=== PATIENT | female | born 1965 | race African-American/Black ===

== ENCOUNTER 2016-10-14 17:50 | Emergency (ER) | payer SELFPAY ==
--- NOTE | 2016-10-14 18:01 | ER Document Report ---
ED Medical Screen (RME) - General Stated Complaint: EAR PAIN Mode of Arrival: Ambulatory Information source: Patient Notes: Patient since emergency department with complaints of right ear pain for the past couple days. also c/o sore throat since yesterday. She reports her ear hurts when she swallows. Denies fever vomiting diarrhea. declines pain medication I have greeted and performed a rapid initial assessment of this patient. A comprehensive ED assessment and evaluation of the patient, analysis of test results and completion of the medical decision making process will be conducted by additional ED providers. TRAVEL OUTSIDE OF THE [place] IN LAST 30 DAYS: No - Related Data Allergies/Adverse Reactions: No Known Allergies Allergy (Verified 10/14/16 18:00) Past Medical History Pulmonary Medical History: Reports: Hx Pneumonia Renal/ Medical History: Reports: Hx Ectopic , Hx Ovarian Cysts GI Medical History: Reports: Hx Diverticulitis, Hx Gastritis Past Surgical History: Reports: Hx Appendectomy, Hx Gynecologic Surgery - both tubes and one ovary removed, Hx Tonsillectomy, Hx Tubal Ligation - Immunizations Immunizations up to date: Yes Hx Diphtheria, Pertussis, Tetanus Vaccination: Yes Physical Exam - Vital signs Vitals: Temp Pulse Resp BP Pulse Ox 97.5 F 72 16 137/82 H 99 10/14/16 17:57 10/14/16 17:57 10/14/16 17:57 10/14/16 17:57 10/14/16 17:57 Course - Vital Signs Vital signs: Temp Pulse Resp BP Pulse Ox 97.5 F 72 16 137/82 H 99 10/14/16 17:57 10/14/16 17:57 10/14/16 17:57 10/14/16 17:57 10/14/16 17:57
[2016-10-14] MEDS ORDERED: HYDROCODONE/ACETAMINOPHEN 5-325 MG 6 TAB/DSPK PO PRN (20:04)
[2016-10-14] MEDS ORDERED: AMOXICILLIN TRIHYDRATE 500 MG CAPSULE PO ONE (20:04)
[2016-10-14] MEDS ORDERED: CIPROFLOXACIN HCL/DEXAMETH OTIC DROP 7.5 ML AD ONE (20:04)
--- NOTE | 2016-10-14 20:08 | ER Document Report ---
HPI - HPI Patient complains to provider of: right ear pain Pain Level: 4 Context: Patient is a 51-year-old female that comes emergency department for chief complaint of worsening pain in her right ear, she states the pain in her ear seems to radiate down the area in her neck just below her ear. He denies any swelling to the area, fever, dizziness, nausea or vomiting. She denies sore throat. Patient states she has been mildly congested with past several days. She denies any cough. - REPRODUCTIVE Reproductive: DENIES: : - DERM Skin Color: Normal Past Medical History - General Information source: Patient - Social History Smoking Status: Current Some Day Smoker Chew tobacco use (# tins/day): No Frequency of alcohol use: None Drug Abuse: None Lives with: Family Family History: CAD, Hyperlipidemia, Hypertension, Malignancy Patient has suicidal ideation: No Patient has homicidal ideation: No Pulmonary Medical History: Reports: Hx Pneumonia Renal/ Medical History: Reports: Hx Ectopic , Hx Ovarian Cysts. Denies: Hx Peritoneal Dialysis GI Medical History: Reports: Hx Diverticulitis, Hx Gastritis Past Surgical History: Reports: Hx Appendectomy, Hx Gynecologic Surgery - both tubes and one ovary removed, Hx Tonsillectomy, Hx Tubal Ligation - Immunizations Immunizations up to date: Yes Hx Diphtheria, Pertussis, Tetanus Vaccination: Yes Vertical Provider Document - CONSTITUTIONAL General Appearance: WD/WN, No Apparent Distress - Patient appears to be only mildly uncomfortable, no distress - INFECTION CONTROL TRAVEL OUTSIDE OF THE [place] IN LAST 30 DAYS: No - HEENT HEENT: negative: Normal ENT Exam - Right ear canal with some inflammation but no noted swelling, right tragus is tender, right eardrum with loss of landmarks and erythema but no noted overt effusion - NECK Neck: Normal Inspection - RESPIRATORY Respiratory: Breath Sounds Normal, No Respiratory Distress O2 Sat by Pulse Oximetry: 99 - CARDIOVASCULAR Cardiovascular: Regular Rate, Regular Rhythm - GI/ABDOMEN Gastrointestinal: Abdomen Soft, Abdomen Non-Tender - BACK Back: Normal Inspection - MUSCULOSKELETAL/EXTREMETIES Musculoskeletal/Extremeties: MAEW, FROM, Non-Tender - NEURO Level of Consciousness: Awake, Alert, Appropriate - DERM Integumentary: Warm, Dry, No Rash Course - Re-evaluation Re-evalutation: Examination indicates post otitis externa and otitis media. Treating for both. Discussed follow-up and return precautions. Patient states understanding and agreement. - Vital Signs Vital signs: Temp Pulse Resp BP Pulse Ox 97.5 F 72 16 137/82 H 99 10/14/16 17:57 10/14/16 17:57 10/14/16 17:57 10/14/16 17:57 10/14/16 17:57 Discharge - Discharge Clinical Impression: Otitis externa Qualifiers: Otitis externa type: unspecified type Laterality: right Chronicity: acute Qualified Code(s): H60.501 - Unspecified acute noninfective otitis externa, right ear Otitis media Qualifiers: Otitis media type: other nonsuppurative Laterality: right Chronicity: acute Recurrence: not specified as recurrent Qualified Code(s): H65.191 - Other acute nonsuppurative otitis media, right ear Condition: Good Disposition: HOME, SELF-CARE Additional Instructions: Examination is consistent with an ear canal infection and a middle ear infection. Use the given drops, take the amoxicillin antibiotic, use the Flonase nasal spray. Follow-up with primary care. Return to emergency department for any concerning or worsening symptoms. Prescriptions: Amoxicillin Trihydrate [Amoxil 500 mg Capsule] 500 mg PO TID #30 cap Fluticasone Propionate [Flonase Nasal [place] 50 Mcg/[place] 16 gm] 2 sprays NASL Q12 #1 inhaler Neomy Sulf/Polymyx B Sulf/Hc [Cortisporin Otic Susp] 1 drop ASDIR #1 bottle Forms: Elevated Blood Pressure
[2016-10-14 20:38] VITALS: BP 130/72
== END 2016-10-14 20:36 | disposition home or self-care (01) ==
LOC: ER 17:50
DX: H60.501 Unspecified acute noninfective otitis externa, right ear (principal); H65.191 Other acute nonsuppurative otitis media, right ear; H92.01 Otalgia, right ear; F17.200 Nicotine dependence, unspecified, uncomplicated; Z98.51 Tubal ligation status
CPT/HCPCS: 99282; J3490

== ENCOUNTER 2017-04-01 14:43 | Emergency (ER) | payer SELFPAY ==
--- NOTE | 2017-04-01 15:16 | ER Document Report ---
ED Oral Problem - General Stated Complaint: TOOTH PAIN Time Seen by Provider: 04/01/17 14:57 Mode of Arrival: Ambulatory Information source: Patient TRAVEL OUTSIDE OF THE [place] IN LAST 30 DAYS: No - HPI Patient complains to provider of: Swelling of face, Toothache Onset: Other - 3 days Onset: Gradual Quality of pain: Achy Severity: Moderate Pain Level: 4 Swollen jaw/face: Mild Associated symptoms: Dental decay, Toothache Notes: Patient is a 52-year-old female presenting to the emergency room today complaining of dental pain, with poor dentition, fractured tooth and a mild facial swelling that has been worsening over the past 2-3 days, she denies any recent injury, no drainage, no fever, has not been seen by a dentist recently - Related Data Allergies/Adverse Reactions: No Known Allergies Allergy (Verified 04/01/17 15:27) Past Medical History - General Information source: Patient - Social History Smoking Status: Current Every Day Smoker Family History: CAD, Hyperlipidemia, Hypertension, Malignancy Pulmonary Medical History: Reports: Hx Pneumonia Renal/ Medical History: Reports: Hx Ectopic , Hx Ovarian Cysts. Denies: Hx Peritoneal Dialysis GI Medical History: Reports: Hx Diverticulitis, Hx Gastritis Past Surgical History: Reports: Hx Appendectomy, Hx Gynecologic Surgery - both tubes and one ovary removed, Hx Tonsillectomy, Hx Tubal Ligation - Immunizations Immunizations up to date: Yes Hx Diphtheria, Pertussis, Tetanus Vaccination: Yes Review of Systems - Review of Systems Constitutional: No symptoms reported EENT: See HPI Cardiovascular: No symptoms reported Respiratory: No symptoms reported Gastrointestinal: No symptoms reported Genitourinary: No symptoms reported Female Genitourinary: No symptoms reported Musculoskeletal: No symptoms reported Skin: No symptoms reported Hematologic/Lymphatic: No symptoms reported Neurological/Psychological: No symptoms reported -: Yes All other systems reviewed and negative Physical Exam - Vital signs Vitals: Temp Pulse Resp BP Pulse Ox 99.1 F 85 16 129/103 H 100 04/01/17 14:52 04/01/17 14:52 04/01/17 14:52 04/01/17 14:52 04/01/17 14:52 Interpretation: Normal - General General appearance: Appears well, Alert In distress: None - HEENT Head: Normocephalic, Atraumatic Eyes: Normal Conjunctiva: Normal Extraocular movements intact: Yes Eyelashes: Normal Pupils: PERRL Mouth/Lips: Caries - Diffusely poor dentition, in the right mandibular region near where tooth 20 should be, there is erythema and swelling, dental caries, with a fractured tooth, with a small portion of a brownish colored tooth remaining no abscess present, no area of fluctuance, no drainage - Respiratory Respiratory status: No respiratory distress Chest status: Nontender Breath sounds: Normal Chest palpation: Normal - Cardiovascular Rhythm: Regular Heart sounds: Normal auscultation Murmur: No - Abdominal Inspection: Normal Distension: No distension Bowel sounds: Normal Tenderness: Nontender Organomegaly: No organomegaly - Back Back: Normal, Nontender - Extremities General upper extremity: Normal inspection, Nontender, Normal color, Normal ROM , Normal temperature General lower extremity: Normal inspection, Nontender, Normal color, Normal ROM , Normal temperature, Normal weight bearing. No: Lupe's sign - Neurological Neuro grossly intact: Yes Cognition: Normal Orientation: AAOx4 [place] Coma Scale Eye Opening: Spontaneous [place] Coma Scale Verbal: Oriented [place]issa Coma Scale Motor: Obeys Commands Elissa Coma Scale Total: 15 Speech: Normal Motor strength normal: LUE, RUE, LLE, RLE Sensory: Normal - Psychological Associated symptoms: Normal affect, Normal mood - Skin Skin Temperature: Warm Skin Moisture: Dry Skin Color: Normal Course - Re-evaluation Re-evalutation: 04/01/17 16:08 Patient with poor dentition, dental caries with dental infection, started on antibiotics and provided with a small amount of pain medication as well as information for follow-up, advised to return if symptoms worsen, patient acknowledges understanding and agreement with this plan - Vital Signs Vital signs: Temp Pulse Resp BP Pulse Ox 99.1 F 74 18 102/84 100 04/01/17 14:52 04/01/17 15:29 04/01/17 15:29 04/01/17 15:29 04/01/17 15:29 Discharge - Discharge Clinical Impression: Dental infection Condition: Stable Disposition: HOME, SELF-CARE Instructions: [facility], Dentist, Dental Infection or Abscess ( [facility]) Additional Instructions: Follow up with your primary care provider and dentist in one to 2 days. Return to the emergency room immediately if symptoms worsen or any additional concerns. Prescriptions: Hydrocodone/Acetaminophen [Hydrocodon-Acetaminophen 5-325] 1 each PO Q6 #14 tablet Penicillin V Potassium [Penicillin Vk 500 mg Tablet] 500 mg PO TID #30 tablet
[2017-04-01 15:30] VITALS: BP 102/84
== END 2017-04-01 15:29 | disposition home or self-care (01) ==
LOC: ER 14:43
DX: K04.7 Periapical abscess without sinus (principal); K08.89 Other specified disorders of teeth and supporting structures; R22.0 Localized swelling, mass and lump, head; F17.200 Nicotine dependence, unspecified, uncomplicated
CPT/HCPCS: 99282

== ENCOUNTER 2017-10-11 13:59 | Emergency (ER) | payer SELFPAY ==
[2017-10-11] MEDS ORDERED: FENTANYL CITRATE INJ/PF 100 MCG/2 ML AMPUL IV ONE (14:15)
[2017-10-11] MEDS ORDERED: ONDANSETRON HCL INJ/PF 4 MG/2 ML SDV IV ONE (14:15)
--- NOTE | 2017-10-11 14:16 | ER Document Report ---
ED Medical Screen (RME) - General Chief Complaint: Abdominal Pain Stated Complaint: ABDOMINAL PAIN Time Seen by Provider: 10/11/17 14:11 Notes: RME DISCLOSURE I have seen this patient as part of a Rapid Medical Evaluation and, if applicable, placed any initially appropriate orders. The patient will be seen and fully evaluated, including a full history and physical exam, by a provider ( in Main ED or Fast Track) when a room becomes available. 52-year-old female here with complaints of abdominal pain nausea and vomiting that started early this morning. She states it feels the same way as when she had diverticulitis years ago. She has tried taking Tylenol for the pain with minimal relief. No fevers or chills. TRAVEL OUTSIDE OF THE [place] IN LAST 30 DAYS: No - Related Data Allergies/Adverse Reactions: No Known Allergies Allergy (Verified 10/11/17 14:02) Past Medical History - Social History Chew tobacco use (# tins/day): No Frequency of alcohol use: None Drug Abuse: None Pulmonary Medical History: Reports: Hx Pneumonia Renal/ Medical History: Reports: Hx Ectopic , Hx Ovarian Cysts. Denies: Hx Peritoneal Dialysis GI Medical History: Reports: Hx Diverticulitis, Hx Gastritis Past Surgical History: Reports: Hx Appendectomy, Hx Gynecologic Surgery - both tubes and one ovary removed, Hx Tonsillectomy, Hx Tubal Ligation - Immunizations Immunizations up to date: Yes Hx Diphtheria, Pertussis, Tetanus Vaccination: Yes Physical Exam - Vital signs Vitals: Temp Pulse Resp BP Pulse Ox 97.8 F 76 20 128/109 H 100 10/11/17 14:08 10/11/17 14:10/11/17 14:10/11/17 14:10/11/17 14:08 Course - Vital Signs Vital signs: Temp Pulse Resp BP Pulse Ox 97.8 F 76 20 128/109 H 100 10/11/17 14:08 10/11/17 14:08 10/11/17 14:08 10/11/17 14:08 10/11/17 14:08
--- NOTE | 2017-10-11 14:46 | ER Document Report ---
ED General - General Chief Complaint: Abdominal Pain Stated Complaint: ABDOMINAL PAIN Time Seen by Provider: 10/11/17 14:11 TRAVEL OUTSIDE OF THE [place] IN LAST 30 DAYS: No - HPI Patient complains to provider of: Abdominal pain Notes: Left lower quadrant abdominal pain 8/10 sharp in nature. Patient has history of diverticular disease states this feels like a diverticulitis flare. Denies fever chills. Pain does not radiate anywhere nothing made it better or worse. Patient has no history of surgical intervention secondary diverticular disease, Hemoccult negative - Related Data Allergies/Adverse Reactions: No Known Allergies Allergy (Verified 10/11/17 14:02) Past Medical History - Social History Smoking Status: Current Every Day Smoker Chew tobacco use (# tins/day): No Frequency of alcohol use: None Drug Abuse: None Family History: CAD, Hyperlipidemia, Hypertension, Malignancy Patient has suicidal ideation: No Patient has homicidal ideation: No Pulmonary Medical History: Reports: Hx Pneumonia Renal/ Medical History: Reports: Hx Ectopic , Hx Ovarian Cysts. Denies: Hx Peritoneal Dialysis GI Medical History: Reports: Hx Diverticulitis, Hx Gastritis Past Surgical History: Reports: Hx Appendectomy, Hx Gynecologic Surgery - both tubes and one ovary removed, Hx Tonsillectomy, Hx Tubal Ligation - Immunizations Immunizations up to date: Yes Hx Diphtheria, Pertussis, Tetanus Vaccination: Yes Review of Systems - Review of Systems Notes: REVIEW OF SYSTEMS: CONSTITUTIONAL: -fevers, -chills EENT: -eye pain, -difficulty swallowing, -nasal congestion CARDIOVASCULAR: -chest pain, -syncope. RESPIRATORY: -cough, -SOB GASTROINTESTINAL: Positive abdominal pain GENITOURINARY: -dysuria, -hematuria MUSCULOSKELETAL: -back pain, -neck pain SKIN: -rash or skin lesions. HEMATOLOGIC: -easy bruising or bleeding. LYMPHATIC: -swollen, enlarged glands. NEUROLOGICAL: -altered mental status or loss of consciousness, -headache, - neurologic symptoms PSYCHIATRIC: -anxiety, -depression. ALL OTHER SYSTEMS REVIEWED AND NEGATIVE. Physical Exam - Vital signs Vitals: Temp Pulse Resp BP Pulse Ox 97.8 F 76 20 128/109 H 100 10/11/17 14:08 10/11/17 14:08 10/11/17 14:08 10/11/17 14:08 10/11/17 14:08 - Notes Notes: PHYSICAL EXAMINATION: GENERAL: Well-appearing, well-nourished and in no acute distress. HEAD: Atraumatic, normocephalic. EYES: Pupils equal round and reactive to light, extraocular movements intact, sclera anicteric, conjunctiva are normal. ENT: nares patent, oropharynx clear without exudates. Moist mucous membranes. NECK: Normal range of motion, supple without lymphadenopathy LUNGS: Breath sounds clear to auscultation bilaterally and equal. No wheezes rales or rhonchi. HEART: Regular rate and rhythm without murmurs ABDOMEN: No rebound, negative guarding EXTREMITIES: Normal range of motion, no pitting or edema. No cyanosis. NEUROLOGICAL: Cranial nerves grossly intact. Normal speech, normal gait. Normal sensory and motor exams. PSYCH: Normal mood, normal affect. SKIN: Warm, Dry, normal turgor, no rashes or lesions noted. Course - Re-evaluation Re-evalutation: 10/11/17 16:14 Pleasant female presents with mild left lower quadrant pain. She states his diverticulitis. 2 attempts at obtaining blood draw in the department along with IV axis. Patient states it hurts too much she does not want an IV. Patient would like to try outpatient diverticulitis therapy. Had lengthy conversation with patient that I could put a central line in her or an ultrasound-guided line. She states she has been here long enough she would like to go home. Patient given pain medicine and antinausea medicine is tolerating oral intake. Had lengthy conversation with patient about need for follow-up. Patient given initial dose Augmentin in the emergency department pain medication. Will be discharged home with more Augmentin, pain medicine, antiemetics. Patient instructed to eat a bland diet clear liquids or no food at all give herself bowel rest outside of medications. Patient does decide she wants to return to the hospital please due for admission. - Vital Signs Vital signs: Temp Pulse Resp BP Pulse Ox 97.8 F 76 20 128/109 H 100 10/11/17 14:08 10/11/17 14:08 10/11/17 14:08 10/11/17 14:08 10/11/17 14:08 Discharge - Discharge Clinical Impression: Diverticulitis Condition: Good Disposition: HOME, SELF-CARE Instructions: [facility]iculitis ([facility]) Additional Instructions: sEE YOUR pcp Prescriptions: Amox Tr/Potassium Clavulanate [Augmentin 875-125 Tablet] 1 tab PO BID 10 Days tablet Oxycodone HCl [Oxycodone HCl 10 MG Tablet] 1 - 2 tab PO Q6H PRN #15 tablet PRN Reason: PAIN Promethazine HCl [Phenergan 25 mg Tablet] 1 - 2 tab PO Q6H PRN #15 tablet PRN Reason: Referrals: [facility],NO [Primary Care Provider] - Follow up as needed
[2017-10-11] MEDS ORDERED: HYDROMORPHONE HCL INJ/PF 2 MG/ML AMPULE IM ONE (15:59)
[2017-10-11] MEDS ORDERED: AMOXICILLIN TR/POT CLAVULANATE 250-125 MG TAB PO ONE (16:01)
[2017-10-11] MEDS ORDERED: PROMETHAZINE HCL INJ 25 MG/1 ML VIAL IM ONE (16:01)
[2017-10-11 16:48] VITALS: BP 130/88
== END 2017-10-11 16:46 | disposition home or self-care (01) ==
LOC: ER 13:59
DX: K57.92 Diverticulitis of intestine, part unspecified, without perforation or abscess without bleeding (principal); R10.32 Left lower quadrant pain; F17.200 Nicotine dependence, unspecified, uncomplicated; Z87.19 Personal history of other diseases of the digestive system; Z90.49 Acquired absence of other specified parts of digestive tract
CPT/HCPCS: 99283; 96372; 96374; 96375; J3490; J3010; J1170; J2550; J2405

== ENCOUNTER 2017-10-15 13:25 | Emergency (ER) | payer SELFPAY ==
[2017-10-15 13:46] VITALS: BP 138/67
[2017-10-15] MEDS ORDERED: TRAMADOL HCL 50 MG TABLET PO ONE ×2 (15:41→16:24)
--- NOTE | 2017-10-15 15:47 | ER Document Report ---
ED Oral Problem - General Chief Complaint: Toothache Stated Complaint: TOOTH PAIN Time Seen by Provider: 10/15/17 15:34 Mode of Arrival: Ambulatory Information source: Patient TRAVEL OUTSIDE OF THE [place] IN LAST 30 DAYS: No - HPI Patient complains to provider of: Toothache Notes: Patient is here with complaints of left lower dental pain. She states that she has had this pain since yesterday. No fevers. No difficulty breathing or swallowing. No nausea, vomiting, diarrhea. No chest pain or shortness of breath. No rash. She denies any facial swelling or jaw swelling. She states that she went to a dentist earlier today, they wanted $100 in order to see her and she states that she cannot afford that until Sunday. So she came emergency department hoping to get relief of her pain. She has no other complaints at this time. The pain is worse with trying to eat. Nothing makes it better. - Related Data Allergies/Adverse Reactions: No Known Allergies Allergy (Verified 10/15/17 13:27) Past Medical History - Social History Smoking Status: Unknown if Ever Smoked Family History: CAD, Hyperlipidemia, Hypertension, Malignancy Pulmonary Medical History: Reports: Hx Pneumonia Renal/ Medical History: Reports: Hx Ectopic , Hx Ovarian Cysts. Denies: Hx Peritoneal Dialysis GI Medical History: Reports: Hx Diverticulitis, Hx Gastritis Past Surgical History: Reports: Hx Appendectomy, Hx Gynecologic Surgery - both tubes and one ovary removed, Hx Tonsillectomy, Hx Tubal Ligation - Immunizations Immunizations up to date: Yes Hx Diphtheria, Pertussis, Tetanus Vaccination: Yes Review of Systems - Review of Systems -: Yes All other systems reviewed and negative Physical Exam - Vital signs Vitals: Temp Pulse Resp BP Pulse Ox 97.9 F 67 16 138/67 H 100 10/15/17 13:44 10/15/17 13:44 10/15/17 13:44 10/15/17 13:44 10/15/17 13:44 - Notes Notes: GENERAL: alert, cooperative, nontoxic, no distress. HEAD: normocephalic, atraumatic EYES: conjunctiva pink without discharge, no external redness or swelling. EARS: no external swelling, no external redness NOSE: atraumatic, no external swelling MOUTH/THROAT: mucous membranes moist and pink. Widespread dental decay. Significantly decayed tooth noted to the left lower jaw at approximately TOOTH 22. No sizable, drainable abscess identified. No facial swelling. No sublingual swelling or induration. No sign of Giuseppe's angina. NECK: soft, supple, full range of motion, no meningismus. CHEST: no distress, lungs clear and equal throughout. No wheezing, rales, rhonchi. CARDIAC: regular rate and rhythm, no murmur, normal capillary refill, normal pulses. BACK: full range of motion, no CVA tenderness. EXTREMITIES: full range of motion of all extremities. No redness, no swelling. NEURO: alert and oriented 3, no focal deficits, full range of motion of all extremities. PYSCH: appropriate mood, affect. Patient is cooperative. SKIN: pink, warm, dry, no rash. Course - Re-evaluation Re-evalutation: 10/15/17 15:43 The patient is nontoxic appearing with stable vitals. The patient arrives with left lower dental pain. States this started yesterday. She is a nontoxic exam with no sign of Giuseppe's angina or distress. She is noted to have some widespread dental decay and tooth #22 appears to have a significant cavity. This point the patient can be discharged home with prescription for some pain medication as well as antibiotics. She is instructed to follow-up with a dentist at the next available appointment for reevaluation. Follow-up sooner for increasing pain, high fever, swelling, difficulty breathing or swallowing, or for any further concerns. The patient's emergency department workup and current diagnosis were explained to the patient and or family. Follow-up instructions were provided. Medications if prescribed were discussed. Instructions for when to return to the emergency department including specific worrisome symptoms were discussed with the patient and/or family. The patient is noted to have elevated blood pressure during today's emergency department visit. The patient was informed of this finding. The patient was instructed that this may be related to pre-hypertension and requires further evaluation with a primary care provider. The patient has no hypertensive symptoms at this time. - Vital Signs Vital signs: Temp Pulse Resp BP Pulse Ox 97.9 F 67 16 138/67 H 100 10/15/17 13:44 10/15/17 13:44 10/15/17 13:44 10/15/17 13:44 10/15/17 13:44 Discharge - Discharge Clinical Impression: Dental caries, Pain, dental Condition: Stable Disposition: HOME, SELF-CARE Instructions: [facility], Toothache ([facility]), Dentist Additional Instructions: Take medications as prescribed. Follow-up with a dentist at the next available appointment. Follow-up sooner for increasing pain, high fever, difficulty breathing or swallowing, significant swelling, or for any further concerns. Your blood pressure was elevated during today's visit. Have this rechecked with your doctor. The medication you were prescribed today may cause drowsiness. Do not drive or operate heavy machinery while taking this medication. Prescriptions: Tramadol HCl [Ultram 50 mg Tablet] 50 mg PO Q6HP PRN #6 tablet PRN Reason: Penicillin V Potassium [Penicillin Vk 500 mg Tablet] 500 mg PO BID #20 tablet Forms: Elevated Blood Pressure, Smoking Cessation Education Referrals: [facility] [Provider Group] - Follow up as needed [facility] [Provider Group] - Follow up as needed
[2017-10-15] MEDS ORDERED: KETOROLAC TROMETHAMINE INJ/PF 30 MG/1 ML SDV IM ONE (16:21)
== END 2017-10-15 16:35 | disposition home or self-care (01) ==
LOC: ER 13:25
DX: K02.9 Dental caries, unspecified (principal); K08.89 Other specified disorders of teeth and supporting structures; R03.0 Elevated blood-pressure reading, without diagnosis of hypertension
CPT/HCPCS: 99282

== ENCOUNTER 2018-07-28 11:20 | Emergency (ER) | payer SELFPAY ==
[2018-07-28] MEDS ORDERED: KETOROLAC TROMETHAMINE INJ/PF 30 MG/1 ML SDV IV ONE (11:47)
--- NOTE | 2018-07-28 11:49 | ER Document Report ---
ED Medical Screen (RME) - General Chief Complaint: Abdominal Pain Stated Complaint: ABDOMINAL PAIN Time Seen by Provider: 07/28/18 11:47 Mode of Arrival: Ambulatory Information source: Patient TRAVEL OUTSIDE OF THE [place] IN LAST 30 DAYS: No - HPI Patient complains to provider of: abd pain Onset: This morning - pt. with h/o diverticulitis with c/o severe abd pain and nausea earlier this am. Had vomiting and diarrhea times 1 - Related Data Allergies/Adverse Reactions: No Known Allergies Allergy (Verified 07/28/18 11:21) Past Medical History Pulmonary Medical History: Reports: Hx Pneumonia Renal/ Medical History: Reports: Hx Ectopic , Hx Ovarian Cysts. Denies: Hx Peritoneal Dialysis GI Medical History: Reports: Hx Diverticulitis, Hx Gastritis Past Surgical History: Reports: Hx Appendectomy, Hx Gynecologic Surgery - both tubes and one ovary removed, Hx Tonsillectomy, Hx Tubal Ligation - Immunizations Immunizations up to date: Yes Hx Diphtheria, Pertussis, Tetanus Vaccination: Yes Physical Exam - Vital signs Vitals: Temp Pulse Resp BP Pulse Ox 97.8 F 99 18 130/97 H 99 07/28/18 11:27 07/28/18 11:27 07/28/18 11:27 07/28/18 11:27 07/28/18 11:27 Course - Vital Signs Vital signs: Temp Pulse Resp BP Pulse Ox 97.8 F 99 18 130/97 H 99 07/28/18 11:27 07/28/18 11:27 07/28/18 11:27 07/28/18 11:27 07/28/18 11:27
[2018-07-28] MEDS ORDERED: MAG HYDROX/AL HYDROX/SIMETH SUSP 30 ML UDCUP PO ONE (13:01)
[2018-07-28] MEDS ORDERED: ONDANSETRON HCL INJ/PF 4 MG/2 ML SDV IV ONE (13:01)
[2018-07-28] MEDS ORDERED: LIDOCAINE 2% VISCOUS SOLN 20 ML UDCUP PO ONE (13:01)
[2018-07-28] MEDS ORDERED: NORMAL SALINE 1000 ML 1,000 ML IV ONE (13:01)
[2018-07-28] MEDS ORDERED: METOCLOPRAMIDE HCL ORAL SOLN 10 MG/10 ML UDCUP PO ONE (13:01)
--- NOTE | 2018-07-28 13:04 | ER Document Report ---
Addendum entered and electronically signed by FRANSISCA LOWERY PA-C 07/28/18 17:24: Course - Re-evaluation Re-evalutation: 07/28/18 17:21 Patient is an afebrile, well-hydrated, 53-year-old female who presents to the ED with epigastric pain unspecified. Vitals are acceptable without any significant tachycardia, tachypnea, or hypoxia. PE is otherwise unremarkable. CBC, CMP, lipase, CT of the abdomen/pelvis was unremarkable for acute pathology. Patient is nontoxic-appearing is tolerating p.o. without any difficulties. No other labs or imaging warranted at this time based on H&P. Pt has not had any episodes of emesis or diarrhea throughout her stay. Low suspicion/risk for acute appendicitis, bowel obstruction, acute cholecystitis, acute cholangitis, perforated diverticulitis, incarcerated hernia, pancreatitis, perforated ulcer, peritonitis, sepsis, pelvic inflammatory disease, ectopic , tubo- ovarian abscess, ovarian torsion, or other systemic emergent condition at this time. Patient is aware that her condition can change from initial presentation and she needs to monitor symptoms closely and seek medical attention if any acute changes. I will send her home with prescription for Zofran.-year-old female presents Conservative measures otherwise for symptoms. Recheck with your PCM in 3-5 days. Return to the ED with any worsening/concerning symptoms otherwise as reviewed in discharge. Patient is in agreement. - Vital Signs Vital signs: Temp Pulse Resp BP Pulse Ox 97.8 F 99 18 130/97 H 99 07/28/18 11:27 07/28/18 11:27 07/28/18 11:27 07/28/18 11:27 07/28/18 11:27 - Laboratory Result Diagrams: 07/28/18 12:53 07/28/18 12:53 Laboratory results interpreted by me: 07/28/18 07/28/18 12:53 12:53 WBC 11.9 H MCH 26.9 L Seg Neutrophils % 80.1 H Monocytes % 2.8 L Absolute Neutrophils 9.6 H Chloride 110 H Glucose 112 H Calcium 10.5 H Discharge - Discharge Clinical Impression: Nonspecific abdominal pain Nausea and vomiting Qualifiers: Vomiting type: unspecified Vomiting Intractability: non-intractable Qualified Code(s): R11.2 - Nausea with vomiting, unspecified Condition: Stable Disposition: HOME, SELF-CARE Instructions: Abdominal Pain ([facility]), Antinausea Medication ([facility]), Vomiting ([facility]), Diarrhea, Nonspecific ([facility]) Additional Instructions: Maintain adequate fluid and food intake [place] diet ([employer] Bananas, rice, apples, toast, etc Zofran as needed tylenol if needed Monitor for any worsening symptoms Make sure you are staying hydrated enough to urinate and have normal BM's Recheck with your PCM in 3-5 days Consider consult with Gastroenterology for ongoing/worsening symptoms Return to the ED with any worsening symptoms and/or development of fever, headache, chest pain, palpitations, syncope, shortness of breath, trouble breathing, abdominal pain, n/v/d, blood in stool/urine, weakness, or other worsening symptoms that are concerning to you. Prescriptions: Loperamide HCl [Imodium 2 mg Capsule] 2 mg PO PRN PRN #21 cap PRN Reason: Ondansetron [Zofran Odt 4 mg Tablet] 1 - 2 tab PO Q4H PRN #15 tab.rapdis PRN Reason: For Nausea/Vomiting Original Note: ED General - General Mode of Arrival: Ambulatory TRAVEL OUTSIDE OF THE [place] IN LAST 30 DAYS: No <FRANSISCA LOWERY - Last Filed: 07/28/18 13:01> <ANGEL ROYAL - Last Filed: 07/28/18 15:24> - General Chief Complaint: Abdominal Pain Stated Complaint: ABDOMINAL PAIN Time Seen by Provider: 07/28/18 11:47 - HPI Notes: Patient is a 53-year-old female with a history of diverticulosis who presents to the ED complaining of epigastric/mid abdominal pain that started this morning. Patient states that she did have some soreness last night, but the pain became worse after she was vomiting. Patient states that she had vomiting and diarrhea beginning yesterday, but has not vomited today. She has not noticed any melena or hematochezia. She has not had any hematemesis. Patient states that she was retching "fairly hard." Patient states that p.o. intake does increase her nausea so she has not been eating or drinking today. Denies any drug allergies. She does have a surgical history for ooverectomy and appendectomy. The pain does not radiate otherwise. Denies any headache, fever, URI, sore throat, chest pain, palpitations, syncope, cough, shortness of breath, wheeze, dyspnea, urinary retention, dysuria, hematuria, back pain, loss of control of bowel or bladder, numbness/tingling, saddle anesthesia, muscle paralysis/weakness, or rash. (FRANSISCA LOWERY) - Related Data Allergies/Adverse Reactions: No Known Allergies Allergy (Verified 07/28/18 11:21) Past Medical History - General Information source: Patient - Social History Smoking Status: Current Every Day Smoker Frequency of alcohol use: None Drug Abuse: None Family History: CAD, Hyperlipidemia, Hypertension, Malignancy Patient has suicidal ideation: No Patient has homicidal ideation: No Pulmonary Medical History: Reports: Hx Pneumonia Renal/ Medical History: Reports: Hx Ectopic , Hx Ovarian Cysts. Denies: Hx Peritoneal Dialysis GI Medical History: Reports: Hx Diverticulitis, Hx Gastritis Past Surgical History: Reports: Hx Appendectomy, Hx Gynecologic Surgery - both t ubes and one ovary removed, Hx Tonsillectomy, Hx Tubal Ligation - Immunizations Immunizations up to date: Yes Hx Diphtheria, Pertussis, Tetanus Vaccination: Yes <FRANSISCA LOWERY - Last Filed: 07/28/18 13:01> Review of Systems - Review of Systems -: Yes All other systems reviewed and negative <FRANSISCA LOWERY - Last Filed: 07/28/18 13:01> Physical Exam <FRANSISCA LOWERY - Last Filed: 07/28/18 13:01> - Vital signs Vitals: Temp Pulse Resp BP Pulse Ox 97.8 F 99 18 130/97 H 99 07/28/18 11:27 07/28/18 11:27 07/28/18 11:27 07/28/18 11:27 07/28/18 11:27 - Notes Notes: PHYSICAL EXAMINATION: GENERAL: Well-appearing, well-nourished and in no acute distress. HEAD: Atraumatic, normocephalic. EYES: Pupils equal round and reactive to light, extraocular movements intact, sclera anicteric, conjunctiva are normal. ENT: EAC clear b/l. TM's intact b/l without erythema, fluid, or perforation. Nares patent and without discharge. oropharynx clear without exudates. No tonsilar hypertrophy or erythema. Moist mucous membranes. No sinus tenderness. NECK: Normal range of motion, supple without lymphadenopathy LUNGS: Breath sounds clear to auscultation bilaterally and equal. No wheezes rales or rhonchi. HEART: Regular rate and rhythm without murmurs, rubs, gallops. ABDOMEN: Soft, nondistended abdomen. No guarding, no rebound. Normal bowel sounds present. No CVA tenderness bilaterally. + tenderness to the epigastrum and above the umbilicus at the midline. No tenderness at LLQ, RLQ, or montoya. Musculoskeletal: FROM to passive/active. Strength 5+/5. Extremities: No cyanosis, clubbing, or edema b/l. Peripheral pulses 2+. Capillary refill less than 3 seconds. NEUROLOGICAL: Normal speech, normal gait. PSYCH: Normal mood, normal affect. SKIN: Warm, Dry, normal turgor, no rashes or lesions noted. (FRANSISCA LOWERY) Course - Laboratory Result Diagrams: 07/28/18 12:53 07/28/18 12:53 <FRANSISCA LOWERY - Last Filed: 07/28/18 13:01> - Laboratory Result Diagrams: 07/28/18 12:53 07/28/18 12:53 <ANGEL ROYAL - Last Filed: 07/28/18 15:24> - Vital Signs Vital signs: Temp Pulse Resp BP Pulse Ox 97.8 F 99 18 130/97 H 99 07/28/18 11:27 07/28/18 11:27 07/28/18 11:27 07/28/18 11:27 07/28/18 11:27 - Laboratory Laboratory results interpreted by me: 07/28/18 07/28/18 12:53 12:53 WBC 11.9 H MCH 26.9 L Seg Neutrophils % 80.1 H Monocytes % 2.8 L Absolute Neutrophils 9.6 H Chloride 110 H Glucose 112 H Calcium 10.5 H Procedures - Additional Procedures IV insertion Additional Procedures: IV insertion - using the ultrasound a [address] just below the anticubial fossa with no complications area cleaned with alcohol prep pad. using the ultrasound the angiocath was seen passing into the vessel. blood was returned, and area flushed with no pain or swelling <ANGEL ROYAL - Last Filed: 07/28/18 15:24>
[2018-07-28 13:15] LABS: ABSOLUTE BASOPHILS # (AUTO) 0.1 10^3/uL (0.0-0.2); ABSOLUTE LYMPHOCYTES (AUTO) 1.9 10^3/uL (0.5-4.7); ABSOLUTE MONOCYTES (AUTO) 0.3 10^3/uL (0.1-1.4); ABSOLUTE NEUT (AUTO) 9.6 10^3/uL (1.7-8.2); BASOPHILS % (AUTO) 0.6 % (0-2); EOSINOPHILS % (AUTO) 0.2 % (0-6); HEMATOCRIT 43.4 % (36.0-47.0); HEMOGLOBIN 14.2 g/dL (12.0-15.5); LYMPHOCYTES % (AUTO) 16.3 % (13-45); MEAN CORPUSCULAR HEMOGLOBIN 26.9 pg (27.0-33.4); MEAN CORPUSCULAR HGB CONC 32.7 g/dL (32.0-36.0); MEAN CORPUSCULAR VOLUME 82 fl (80-97); MONOCYTES % (AUTO) 2.8 % (3-13); PLATELET COUNT 343 10^3/uL (150-450); RED BLOOD COUNT 5.27 10^6/uL (3.72-5.28); RED CELL DISTRIBUTION WIDTH 13.1 % (11.5-14.0); SEGMENTED NEUTROPHILS % (AUTO) 80.1 % (42-78); TOTAL CELLS COUNTED % (AUTO) 100 %; WHITE BLOOD COUNT 11.9 10^3/uL (4.0-10.5)
[2018-07-28 13:33] LABS: ALANINE AMINOTRANSFERASE 15 U/L (9-52); ALBUMIN 4.8 g/dL (3.5-5.0); ALKALINE PHOSPHATASE 68 U/L (38-126); ANION GAP 10 (5-19); ASPARTATE AMINO TRANSFERASE 19 U/L (14-36); BILIRUBIN,DIRECT 0.2 mg/dL (0.0-0.4); BILIRUBIN,TOTAL 0.5 mg/dL (0.2-1.3); BLOOD UREA NITROGEN 8 mg/dL (7-20); CALCIUM 10.5 mg/dL (8.4-10.2); CARBON DIOXIDE 25 mmol/L (22-30); CHLORIDE 110 mmol/L (98-107); GLUCOSE 112 mg/dL (75-110); LIPASE 32.5 U/L (23-300); POTASSIUM 4.4 mmol/L (3.6-5.0); TOTAL PROTEIN 7.8 g/dL (6.3-8.2)
[2018-07-28] MEDS ORDERED: MORPHINE SULFATE 10 MG/ML INJ IV ONE (15:48)
--- NOTE | 2018-07-28 17:10 | RADIOLOGY REPORT (SQ) ---
EXAM DESCRIPTION: CT ABD/PELVIS WITH IV ONLY COMPLETED DATE/TIME: 07/28/2018 4:17 pm REASON FOR STUDY: abd pain COMPARISON: None. TECHNIQUE: CT scan of the abdomen and pelvis performed using helical scanning technique with dynamic intravenous contrast injection. No oral contrast. Images reviewed with lung, soft tissue, and bone windows. Reconstructed coronal and sagittal MPR images reviewed. Delayed images for evaluation of the urinary system also acquired. All images stored on PACS. All CT scanners at this facility use dose modulation, iterative reconstruction, and/or weight based d osing when appropriate to reduce radiation dose to as low as reasonably achievable (ALARA). [facility]: Dose Right [facility]: CareDose [facility]: Dose Right [facility]: Teradose 4D [facility]: [place] CONTRAST TYPE AND DOSE: contrast/concentration: Isovue 350.00 mg/ml; Total Contrast Delivered: 95.0 ml; Total Saline Delivered: 71.0 ml RENAL FUNCTION: GFR > 60. RADIATION DOSE: CT Rad equipment meets quality standard of care and radiation dose reduction techniq ues were employed. CTDIvol: 7.8 - 11.0 mGy. DLP: 1026 mGy-cm.. LIMITATIONS: None. FINDINGS: LOWER CHEST: No significant findings. No nodules or infiltrates. LIVER: Normal size. No masses. No dilated ducts. SPLEEN: Normal size. No focal lesions. PANCREAS: No masses. No significant calcifications. No adjacent inflammation or peripancreatic fluid collections. Pancreatic duct not dilated. GALLBLADDER: No identified stones by CT criteria. No inflammatory changes to suggest cholecystitis. ADRENAL GLANDS: No significant masses or asymmetry. RIGHT KIDNEY AND URETER: No solid masses. No significant calcifications. No hydronephrosis or hyd roureter. LEFT KIDNEY AND URETER: No solid masses. No significant calcifications. No hydronephrosis or hydr oureter. AORTA AND VESSELS: No aneurysm. No dissection. Renal arteries, SMA, celiac without stenosis. RETROPERITONEUM: No retroperitoneal adenopathy, hemorrhage or masses. BOWEL AND PERITONEAL CAVITY: No masses or inflammatory changes. No free fluid or peritoneal masses. APPENDIX: Surgically absent. PELVIS: No mass. No free fluid. Normal bladder. ABDOMINAL WALL: No masses. No hernias. BONES: No significant or acute findings. OTHER: No other significant finding. IMPRESSION: No CT findings to explain acute abdominal pain. Status post appendectomy. TECHNICAL DOCUMENTATION: JOB ID: [id number] Quality ID # [id number]: Final reports with documentation of one or more dose reduction techniques (e.g., Au tomated exposure control, adjustment of the mA and/or kV according to patient size, use of iterative reconstruction technique) 2010 [employer]- All Rights Reserved Reading location - IP/workstation name: [email or web address]
[2018-07-28 18:12] VITALS: BP 124/86
== END 2018-07-28 18:12 | disposition home or self-care (01) ==
LOC: ER 11:20
DX: R10.13 Epigastric pain (principal); R11.2 Nausea with vomiting, unspecified; F17.200 Nicotine dependence, unspecified, uncomplicated; Z98.51 Tubal ligation status
CPT/HCPCS: 99284; 96361; 96374; 96375; 36415; 83690; 85025; 80053; 74177; J3490; J1885; J2270; J2405; J7030

== ENCOUNTER 2019-04-30 12:57 | Inpatient (IN) | payer SELFPAY ==
--- NOTE | 2019-04-30 13:18 | ER Document Report ---
ED Medical Screen (RME) - General Stated Complaint: THROAT SWELLING/HEADACHE Time Seen by Provider: 04/30/19 13:12 Mode of Arrival: Wheelchair Information source: Patient Notes: This 54-year-old female presents emergency department with reports she had a headache for the past couple days. She reports last night her face started drooping on the right side. She started having trouble speaking. When she woke up this morning she had increased trouble speaking and reports she was drooling from her mouth. And reports she was having a hard time swallowing talking. Right-sided facial drooping noted. Denies history of stroke. Reports her sister had a stroke. The patient denies past medical history reports she is not taking medication for anything. I have greeted and performed a rapid initial assessment of this patient. A comprehensive ED assessment and evaluation of the patient, analysis of test results and completion of the medical decision making process will be conducted by additional ED providers. Dictation of this chart was performed using voice recognition software; therefore, there may be some unintended grammatical errors. TRAVEL OUTSIDE OF THE [place] IN LAST 30 DAYS: No - Related Data Allergies/Adverse Reactions: No Known Allergies Allergy (Verified 07/28/18 11:21) Past Medical History Pulmonary Medical History: Reports: Hx Pneumonia Renal/ Medical History: Reports: Hx Ectopic , Hx Ovarian Cysts. Denies: Hx Peritoneal Dialysis GI Medical History: Reports: Hx Diverticulitis, Hx Gastritis Past Surgical History: Reports: Hx Appendectomy, Hx Gynecologic Surgery - both tubes and one ovary removed, Hx Tonsillectomy, Hx Tubal Ligation - Immunizations Immunizations up to date: Yes Hx Diphtheria, Pertussis, Tetanus Vaccination: Yes
[2019-04-30 13:34] LABS: ABSOLUTE BASOPHILS # (AUTO) 0.1 10^3/uL (0.0-0.2); ABSOLUTE EOSINOPHILS # (AUTO) 0.1 10^3/uL (0.0-0.6); ABSOLUTE LYMPHOCYTES (AUTO) 2.3 10^3/uL (0.5-4.7); ABSOLUTE MONOCYTES (AUTO) 0.5 10^3/uL (0.1-1.4); ABSOLUTE NEUT (AUTO) 4.9 10^3/uL (1.7-8.2); BASOPHILS % (AUTO) 0.8 % (0-2); EOSINOPHILS % (AUTO) 1.7 % (0-6); HEMOGLOBIN 12.7 g/dL (12.0-15.5); LYMPHOCYTES % (AUTO) 28.9 % (13-45); MEAN CORPUSCULAR HEMOGLOBIN 27.1 pg (27.0-33.4); MEAN CORPUSCULAR HGB CONC 33.3 g/dL (32.0-36.0); MEAN CORPUSCULAR VOLUME 81 fl (80-97); PLATELET COUNT 279 10^3/uL (150-450); RED BLOOD COUNT 4.68 10^6/uL (3.72-5.28); RED CELL DISTRIBUTION WIDTH 12.5 % (11.5-14.0); SEGMENTED NEUTROPHILS % (AUTO) 62.6 % (42-78); TOTAL CELLS COUNTED % (AUTO) 100 %; WHITE BLOOD COUNT 7.9 10^3/uL (4.0-10.5)
--- NOTE | 2019-04-30 13:36 | RADIOLOGY REPORT (SQ) ---
EXAM DESCRIPTION: CHEST SINGLE VIEW COMPLETED DATE/TIME: 04/30/2019 1:27 pm REASON FOR STUDY: slurred speech drooping right side COMPARISON: 03/26/2014 EXAM PARAMETERS: NUMBER OF VIEWS: One view. TECHNIQUE: Single frontal radiographic view of the chest acquired. RADIATION DOSE: NA LIMITATIONS: None. FINDINGS: LUNGS AND PLEURA: No opacities, masses or pneumothorax. No pleural effusion. MEDIASTINUM AND HILAR STRUCTURES: No masses. Contour normal. HEART AND VASCULAR STRUCTURES: Heart normal in size. Normal vasculature. BONES: No acute findings. HARDWARE: None in the chest. OTHER: No other significant finding. IMPRESSION: NO ACUTE RADIOGRAPHIC FINDING IN THE CHEST. TECHNICAL DOCUMENTATION: JOB ID: [id number] [employer]- All Rights Reserved Reading location - IP/workstation name: [email or web address]
[2019-04-30 13:38] LABS: INTERNATIONAL RATION (INR) 0.96; PARTIAL THROMBOPLASTIN TIME 34.3 SEC (23.5-35.8); PROTHROMBIN TIME 12.8 SEC (11.4-15.4)
--- NOTE | 2019-04-30 13:45 | RADIOLOGY REPORT (SQ) ---
EXAM DESCRIPTION: CT HEAD WITHOUT COMPLETED DATE/TIME: 04/30/2019 1:28 pm REASON FOR STUDY: slurred speech drooping right side COMPARISON: None. TECHNIQUE: Axial images acquired through the brain without intravenous contrast. Images reviewed wi th bone, brain and subdural windows. Additional sagittal and coronal reconstructions were generated. Images stored on PACS. All CT scanners at this facility use dose modulation, iterative reconstruction, and/or weight based d osing when appropriate to reduce radiation dose to as low as reasonably achievable (ALARA). [facility]: Dose Right [facility]: CareDose [facility]: Dose Right [facility]: Teradose 4D [facility]: [employer] RADIATION DOSE: CT Rad equipment meets quality standard of care and radiation dose reduction techniq ues were employed. CTDIvol: 53.2 mGy. DLP: 1044 mGy-cm. mGy. LIMITATIONS: None. FINDINGS: VENTRICLES: Normal size and contour. CEREBRUM: Focal area of hypoattenuation involving the right centrum semiovale. No significant mass e ffect or midline shift. No evidence of intracranial hemorrhage. Remaining mcdonough-white differentiation is preserved. CEREBELLUM: No masses. No hemorrhage. No alteration of density. No evidence for acute infarction. EXTRAAXIAL SPACES: No fluid collections. No masses. ORBITS AND GLOBE: No intra- or extraconal masses. Normal contour of globe without masses. CALVARIUM: No fracture. PARANASAL SINUSES: Mucosal thickening within the left sphenoid sinus. Remaining sinuses are clear. SOFT TISSUES: No mass or hematoma. OTHER: Incomplete imaging of the anterior and posterior arch of C1. IMPRESSION: 1. Focal area of hypoattenuation within the right centrum semiovale suggestive of age-i ndeterminate lacunar infarct. MRI could be considered for further characterization of chronicity. 2. Sinus mucosal disease within the left sphenoid sinus. EVIDENCE OF ACUTE STROKE: Age-indeterminate lacunar infarct. Pertinent positive or negative findings of the imaging study reported as a CRITICAL EXAM to Dr. Garg [facility] at13:37 on 04/30/2019. COMMENT: Quality ID # [id number]: Final reports with documentation of one or more dose reduction techniques (e.g., Automated exposure control, adjustment of the mA and/or kV according to patient size, use of iterative reconstruction technique) TECHNICAL DOCUMENTATION: JOB ID: [id number]- All Rights Reserved Reading location - IP/workstation name: [email or web address]
[2019-04-30 13:46] LABS: ALBUMIN 4.5 g/dL (3.5-5.0); ALKALINE PHOSPHATASE 59 U/L (38-126); ANION GAP 10 (5-19); ASPARTATE AMINO TRANSFERASE 28 U/L (14-36); BILIRUBIN,DIRECT 0.1 mg/dL (0.0-0.4); BILIRUBIN,TOTAL 0.3 mg/dL (0.2-1.3); BLOOD UREA NITROGEN 11 mg/dL (7-20); CALCIUM 10.3 mg/dL (8.4-10.2); CARBON DIOXIDE 26 mmol/L (22-30); CHLORIDE 106 mmol/L (98-107); CREATINE KINASE 150 U/L (30-135); GLUCOSE 100 mg/dL (75-110); POTASSIUM 4.8 mmol/L (3.6-5.0); TOTAL PROTEIN 7.3 g/dL (6.3-8.2)
[2019-04-30 14:12] LABS: CREATINE KINASE MB 0.59 ng/mL (<4.55)
[2019-04-30 14:14] LABS: TROPONIN I < 0.012 ng/mL
[2019-04-30] MEDS ORDERED: ASPIRIN 81 MG TABLET, CHEWABLE PO ONE (16:20)
--- NOTE | 2019-04-30 16:23 | ER Document Report ---
ED General - General Chief Complaint: Facial Droop Stated Complaint: THROAT SWELLING/HEADACHE Time Seen by Provider: 04/30/19 13:12 Mode of Arrival: Wheelchair TRAVEL OUTSIDE OF THE [place] IN LAST 30 DAYS: No - HPI Notes: Patient presents with right sided facial weakness problems swallowing and drooling on herself with word slurring that started approximately 9 PM last night and lasted 20 minutes. Similar symptoms occurred and resolved earlier this morning. Denies any known medical problems does not take any medications on a daily basis. She did not have any numbness or tingling in her arms or legs no chest pain cough congestion fevers recent abdominal pain shortness of breath. - Related Data Allergies/Adverse Reactions: No Known Allergies Allergy (Verified 07/28/18 11:21) Past Medical History - General Information source: Patient - Social History Smoking Status: Current Every Day Smoker Family History: CAD, Hyperlipidemia, Hypertension, Malignancy Patient has suicidal ideation: No Patient has homicidal ideation: No Pulmonary Medical History: Reports: Hx Pneumonia Renal/ Medical History: Reports: Hx Ectopic , Hx Ovarian Cysts. Denies: Hx Peritoneal Dialysis GI Medical History: Reports: Hx Diverticulitis, Hx Gastritis Past Surgical History: Reports: Hx Appendectomy, Hx Gynecologic Surgery - both tubes and one ovary removed, Hx Tonsillectomy, Hx Tubal Ligation - Immunizations Immunizations up to date: Yes Hx Diphtheria, Pertussis, Tetanus Vaccination: Yes Review of Systems - Review of Systems Constitutional: No symptoms reported EENT: No symptoms reported Cardiovascular: No symptoms reported Respiratory: No symptoms reported Gastrointestinal: No symptoms reported Genitourinary: No symptoms reported Female Genitourinary: No symptoms reported Musculoskeletal: No symptoms reported Skin: No symptoms reported Hematologic/Lymphatic: No symptoms reported Neurological/Psychological: See HPI Physical Exam - Vital signs Vitals: Temp Pulse Resp BP Pulse Ox 98.4 F 80 18 141/97 H 98 04/30/19 13:12 04/30/19 13:12 04/30/19 13:12 04/30/19 13:12 04/30/19 13:12 - General General appearance: Appears well, Alert - HEENT Head: Normocephalic Eyes: Normal Conjunctiva: Normal Cornea: Normal Extraocular movements intact: Yes Pupils: PERRL Nerve palsy: Yes - Right facial droop while smiling - Respiratory Respiratory status: No respiratory distress Chest status: Nontender Breath sounds: Normal Chest palpation: Normal - Cardiovascular Rhythm: Regular Heart sounds: Normal auscultation Murmur: No - Abdominal Inspection: Normal Distension: No distension Bowel sounds: Normal Tenderness: Nontender - Back Back: Normal, Nontender - Extremities General upper extremity: Normal inspection, Normal ROM General lower extremity: Normal inspection, Normal ROM - Neurological Neuro grossly intact: Yes Cognition: Normal Speech: Normal Cranial nerves: Facial palsy Cerebellar coordination: Normal Course - Re-evaluation Re-evalutation: 04/30/19 16:40 admit for stroke workup - Vital Signs Vital signs: Temp Pulse Resp BP Pulse Ox 98.4 F 80 18 141/97 H 98 04/30/19 13:12 04/30/19 13:12 04/30/19 13:12 04/30/19 13:12 04/30/19 13:12 - Laboratory Result Diagrams: 04/30/19 12:30 04/30/19 12:30 Laboratory results interpreted by me: 04/30/19 12:30 Calcium 10.3 H Creatine Kinase 150 H Discharge - Discharge Clinical Impression: CVA (cerebral vascular accident) Qualifiers: CVA mechanism: unspecified Qualified Code(s): I63.9 - Cerebral infarction, unspecified Disposition: ADMITTED INPATIENT Admitting Provider: Carly (Hospitalist) Unit Admitted: Telemetry
[2019-04-30] MEDS ORDERED: LORAZEPAM 1 MG TABLET PO ONE (16:50)
--- NOTE | 2019-04-30 17:27 | PDOC H&P ---
History of Present Illness History of Present Illness: MANJIT WATSON is a 54 year old female with no significant past medical history according to her who apparently also does not take any regular home medications who presents with dysarthria and facial droop. Facial droop is since resided but the dysarthria has persisted. She says she had the episode today started this morning with left-sided facial droop and dysarthria. She is had no trouble using her hands, no trouble walking, no balance problems, no trouble chewing or swallowing. No visual disturbances or headache. She states she had a brief episode that lasted for about a half an hour last night but she thought that she had eaten something bad and so she took a couple of Benadryl and eventually the problem got better. She said she had another episode about a week ago and then another episode about 2 weeks ago, each lasting several minutes each and resolving spontaneously. She smokes 1 pack a day, which she says is down from 2 packs a day, and she has smoked for many many years. She has a family history of stroke. She had an indeterminate abnormality on her head CT and MRI is pending. She is being admitted for stroke work-up. Past Medical History Pulmonary Medical History: Reports: Pneumonia GI Medical History: Reports: Diverticulitis Past Surgical History Past Surgical History: Reports: Appendectomy, Tonsillectomy, Tubal Ligation Social History Smoking Status: Current Every Day Smoker Family History Family History: CAD, Hyperlipidemia, Hypertension, Malignancy Parental Family History Reviewed: Yes - Mother had a stroke Children Family History Reviewed: Yes - No known problems Sibling(s) Family History Reviewed.: Yes - Older sister had a stroke this year Medication/Allergy Allergies/Adverse Reactions: No Known Allergies Allergy (Verified 07/28/18 11:21) Review of Systems All systems: reviewed and no additional remarkable complaints except as stated - All systems were reviewed and were negative except as noted in the HPI Physical Exam Vital Signs: Temp Pulse Resp BP Pulse Ox 98.4 F 80 18 141/97 H 98 04/30/19 13:12 04/30/19 13:12 04/30/19 13:12 04/30/19 13:12 04/30/19 13:12 Intake & Output 04/29/19 04/30/19 05/01/19 06:59 06:59 06:59 Weight 90.9 kg General appearance: PRESENT: no acute distress, cooperative, well-developed, well-nourished Head exam: PRESENT: atraumatic, normocephalic Eye exam: PRESENT: EOMI, PERRLA. ABSENT: conjunctival injection, nystagmus, scleral icterus Ear exam: PRESENT: normal external ear exam Mouth exam: PRESENT: moist, neck supple, tongue midline Throat exam: ABSENT: post pharyngeal erythema Neck exam: PRESENT: full ROM. ABSENT: carotid bruit, JVD, lymphadenopathy, meningismus, tenderness, thyromegaly Respiratory exam: PRESENT: clear to auscultation jennifer, symmetrical, unlabored. ABSENT: accessory muscle use, chest wall tenderness, crackles, prolonged e xpiratory phas, rhonchi, tachypnea, wheezes Cardiovascular exam: PRESENT: RRR, +S1, +S2 Pulses: PRESENT: normal carotid pulses Vascular exam: PRESENT: normal capillary refill GI/Abdominal exam: PRESENT: normal bowel sounds, soft. ABSENT: distended, guarding, rebound, tenderness Extremities exam: ABSENT: clubbing, pedal edema Musculoskeletal exam: PRESENT: ambulatory, normal inspection. ABSENT: deformity Neurological exam: PRESENT: alert, awake, oriented to person, oriented to place, oriented to time, oriented to situation. ABSENT: CN II-XII grossly intact - She had some very subtle left-sided facial droop and she has dysarthria when she talks and she is aware of it Psychiatric exam: PRESENT: appropriate affect, normal mood Skin exam: PRESENT: dry, warm Results Laboratory Results: 04/30/19 12:30 04/30/19 12:30 04/30/19 04/30/19 12:30 12:30 WBC 7.9 RBC 4.68 Hgb 12.7 Hct 38.0 MCV 81 MCH 27.1 MCHC 33.3 RDW 12.5 Plt Count 279 Seg Neutrophils % 62.6 Sodium 141.6 Potassium 4.8 Chloride 106 Carbon Dioxide 26 Anion Gap 10 BUN 11 Creatinine 0.84 Est GFR ( Amer) > 60 Glucose 100 Calcium 10.3 H Total Bilirubin 0.3 AST 28 Alkaline Phosphatase 59 Total Protein 7.3 Albumin 4.5 04/30/19 04/30/19 12:30 12:30 Creatine Kinase 150 H CK-MB (CK-2) 0.59 Troponin I < 0.012 Impressions: Chest X-Ray 04/30/19 13:15 IMPRESSION: NO ACUTE RADIOGRAPHIC FINDING IN THE CHEST. Head CT 04/30/19 13:15 IMPRESSION: 1. Focal area of hypoattenuation within the right centrum semiovale suggestive of age-indeterminate lacunar infarct. MRI could be considered for further characterization of chronicity. 2. Sinus mucosal disease within the left sphenoid sinus. EVIDENCE OF ACUTE STROKE: Age-indeterminate lacunar infarct. Pertinent positive or negative findings of the imaging study reported as a CRITICAL EXAM to Dr. Tarango at13:37 on 04/30/2019. Assessment and Plan - Diagnosis (1) CVA (cerebral vascular accident) Qualifiers: CVA mechanism: unspecified Qualified Code(s): I63.9 - Cerebral infarction, unspecified Is this a current diagnosis for this admission?: Yes Plan: She had an indeterminate abnormality on her head CT, and with her history she reports as well as her smoking history and her family history, it is certainly suggestive of an acute ischemic stroke, considering some of the symptoms are persisting. Given aspirin will keep on aspirin every day. We will start a statin. We will check a lipid profile in the morning. Permissive hypertension for now. MRI of the brain is pending. She seems to be able to walk fine and to use her hands fine, so I think she needs physical therapy or occupational therapy, but will definitely have speech therapy evaluate her. We will keep her on the monitor overnight to see if she has any cardiac rhythm abnormalities. (2) Current every day smoker Is this a current diagnosis for this admission?: Yes Plan: Strongly encourage cessation - Time Time Spent with patient: 35 or more minutes - Inpatient Certification Based on my medical assessment, after consideration of the patient's comorbidities, presenting symptoms, or acuity I expect that the services needed warrant INPATIENT care.: Yes I certify that my determination is in accordance with my understanding of Medicare's requirements for reasonable and necessary INPATIENT services [42 CFR 412.3e].: Yes Medical Necessity: Need Close Monitoring Due to Risk of Patient Decompensation, Need For Continuous Telemetry Monitoring, Need for Neurological Checks, Risk of Complication if Not Cared For in Hospital
--- NOTE | 2019-04-30 18:01 | RADIOLOGY REPORT (SQ) ---
EXAM DESCRIPTION: MRI HEAD WITHOUT COMPLETED DATE/TIME: 04/30/2019 5:43 pm REASON FOR STUDY: stroke symptoms COMPARISON: None. TECHNIQUE: Multiplanar imaging includes non-contrasted T1, T2, FLAIR, and diffusion with ADC map seq uences. Images stored on PACS. LIMITATIONS: None. FINDINGS: ANATOMY: No anomalies. Normal vascular flow voids. Pituitary fossa normal. CSF SPACES: Normal in size and contour. No hemorrhage. CEREBRUM: Sulci and gyri normal in size and contour. Normal white matter signal on FLAIR imaging. No evidence of hemorrhage, mass, or extraaxial fluid collection. Chronic right lacunar infarct. POSTERIOR FOSSA: No signal alteration. No hemorrhage. No edema, masses or mass effect. Internal regis tory canals, cerebello-pontine angles, mastoids normal. DIFFUSION IMAGING: Negative for acute or sub-acute infarction. ORBITS: No masses. Globes normal. PARANASAL SINUSES: No fluid levels. Mucosa normal. OTHER: No other significant finding. IMPRESSION: Chronic right lacunar infarct corresponding to the area of abnormality on the CT. No acute intracranial process. EVIDENCE OF ACUTE STROKE: NO. TECHNICAL DOCUMENTATION: JOB ID: [id number] [employer]- All Rights Reserved Reading location - IP/workstation name: [email or web address]
[2019-04-30] MEDS ORDERED: ATORVASTATIN CALCIUM 40 MG TABLET PO SCH (22:00)
[2019-04-30] MEDS: NICOTINE 14 MG/24 HR PATCH.TD24 TD SCH (22:55)
[2019-05-01 07:35] LABS: ANION GAP 9 (5-19); BLOOD UREA NITROGEN 19 mg/dL (7-20); CALCIUM 9.9 mg/dL (8.4-10.2); CARBON DIOXIDE 23 mmol/L (22-30); CHLORIDE 110 mmol/L (98-107); CHOLESTEROL 231.62 mg/dL (0-200); GLUCOSE 101 mg/dL (75-110); POTASSIUM 4.3 mmol/L (3.6-5.0); TRIGLYCERIDES 170 mg/dL (<150)
[2019-05-01 07:45] LABS: DIRECT LDL 163 mg/dL (<100)
--- NOTE | 2019-05-01 08:49 | RADIOLOGY REPORT (SQ) ---
EXAM DESCRIPTION: CAROTID DOPPLER COMPLETED DATE/TIME: 04/30/2019 9:32 pm REASON FOR STUDY: tia COMPARISON: CT brain 04/30/2019, MRI brain 04/30/2019 TECHNIQUE: Grayscale ultrasound, Doppler velocity and spectra, and color Doppler images acquired of the extra-cranial carotid and vertebral arteries. Images stored on PACS. LIMITATIONS: None. FINDINGS: RIGHT CAROTID CCA Velocities: Within normal limits. Right common carotid peak systolic velocity 0.91 m/sec ICA Velocities Peak systolic 0.58 m/s. End diastolic 0.19 m/s. Proximal ICA/CCA peak systolic ratio normal. Very limited color flow in this patient, high carotid bifurcations. Velocity criteria suggest agains t flow significant stenosis LEFT CAROTID CCA Velocities: Within normal limits. Left common carotid artery peak systolic velocity 0.86 m/sec ICA Velocities Peak systolic 1.1 m/s. End diastolic 0.4 m/s. Proximal ICA/CCA peak systolic ratio 1.8. Very limited color flow in this patient, high carotid bifurcations. Velocity criteria suggest less t clifford 50% diameter stenosis VERTEBRAL ARTERIES: Antegrade flow. Normal waveforms. SUBCLAVIAN ARTERIES: Not evaluated OTHER: No other significant finding. IMPRESSION: NO HEMODYNAMICALLY SIGNIFICANT STENOSIS. COMMENT: Quality ID #[id number]: Velocity criteria are extrapolated from the diameter data as defined by roxanna sosa Society of Radiologists in Ultrasound Consensus Conference. Radiology 2003: 229; 340-346. TECHNICAL DOCUMENTATION: JOB ID: [id number] [employer]- All Rights Reserved Reading location - IP/workstation name: [email or web address]
--- NOTE | 2019-05-01 09:18 | EKG REPORT ---
SEVERITY:- NORMAL ECG - SINUS RHYTHM : Confirmed by: Usha Lucas 01-May-2019 09:17:04
[2019-05-01] MEDS ORDERED: ASPIRIN 81 MG TABLET, ENT COATED PO SCH (10:00)
[2019-05-01] MEDS: NICOTINE 14 MG/24 HR PATCH.TD24 TD SCH (10:17)
[2019-05-01 11:22] VITALS: BP 122/68
--- NOTE | 2019-05-01 16:19 | PDOC DISCHARGE SUMMARY ---
Impression - Admit/DC Date/PCP Admission Date/Primary Care Provider: 04/30/19 17:21 Discharge Date: 05/01/19 - Discharge Diagnosis (1) CVA (cerebral vascular accident) Is this a current diagnosis for this admission?: Yes (2) Current every day smoker Is this a current diagnosis for this admission?: Yes - Additional Information Resuscitation Status: Full Code Discharge Diet: Cardiac Discharge Activity: Activity As Tolerated, Balance Activity w/Rest, Slowly Increase Activity Referrals: [facility] [Outside] - 05/06/19 3:30 pm Prescriptions: Simvastatin 20 mg PO DAILY #30 tablet Home Medications: Aspirin [Ecotrin 81 mg EC Tablet] 81 mg PO DAILY tabec 05/01/19 Simvastatin 20 mg PO DAILY #30 tablet 05/01/19 History of Present Illiness History of Present Illness: MANJIT WATSON is a 54 year old female with no significant past medical history according to her who apparently also does not take any regular home medications who presents with dysarthria and facial droop. Facial droop is since resided but the dysarthria has persisted. She says she had the episode today started this morning with left-sided facial droop and dysarthria. She is had no trouble using her hands, no trouble walking, no balance problems, no trouble chewing or swallowing. No visual disturbances or headache. She states she had a brief episode that lasted for about a half an hour last night but she thought that she had eaten something bad and so she took a couple of Benadryl and eventually the problem got better. She said she had another episode about a week ago and then another episode about 2 weeks ago, each lasting several minutes each and resolving spontaneously. She smokes 1 pack a day, which she says is down from 2 packs a day, and she has smoked for many many years. She has a family history of stroke. She had an indeterminate abnormality on her head CT and MRI is pending. She is being admitted for stroke work-up. Hospital Course Hospital Course: Voice was still sounding a bit gruff but her speech had improved. She was seen by the speech therapist and was cleared. Her MRI of the brain showed that she did not have an acute stroke, but there was evidence of a chronic ischemic infarct. I suspect she has small vessel disease in that area and she has the same symptoms recurring multiple times and so I suspect that she continued to have intermittent ischemia in that area which triggers her symptoms each time. I strongly advised that she quit smoking. Put her on aspirin every day and on simvastatin for her elevated cholesterol. She does not have a primary care provider, and does not have insurance, so we provided her with information about the [facility]. She was not having any trouble chewing or swallowing, no trouble walking with balance, or trouble with use of her hands. She was not having any visual disturbances. Her labs and examination were reassuring she was discharged in good condition. Physical Exam Vital Signs: Temp Pulse Resp BP Pulse Ox 97.5 F 41 L 18 122/68 99 05/01/19 11:44 05/01/19 11:44 05/01/19 11:44 05/01/19 11:44 05/01/19 11:44 Intake & Output 04/30/19 05/01/19 05/02/19 06:59 06:59 06:59 Weight 91.4 kg General appearance: PRESENT: no acute distress, cooperative Respiratory exam: PRESENT: clear to auscultation jennifer, symmetrical, unlabored. ABSENT: accessory muscle use, chest wall tenderness, crackles, prolonged expiratory phas, rhonchi, tachypnea, wheezes Cardiovascular exam: PRESENT: RRR, +S1, +S2 Pulses: PRESENT: normal carotid pulses Vascular exam: PRESENT: normal capillary refill GI/Abdominal exam: PRESENT: normal bowel sounds, soft. ABSENT: distended, guarding, rebound, tenderness Extremities exam: ABSENT: clubbing, pedal edema Musculoskeletal exam: PRESENT: normal inspection. ABSENT: deformity Neurological exam: PRESENT: alert, awake, oriented to person, oriented to place, oriented to time, oriented to situation, CN II-XII grossly intact. ABSENT: motor sensory deficit Psychiatric exam: PRESENT: appropriate affect, normal mood Skin exam: PRESENT: dry, warm Results Laboratory Results: WBC 7.9 10^3/uL (4.0-10.5) 04/30/19 12:30 RBC 4.68 10^6/uL (3.72-5.28) 04/30/19 12:30 Hgb 12.7 g/dL (12.0-15.5) 04/30/19 12:30 Hct 38.0 % (36.0-47.0) 04/30/19 12:30 MCV 81 fl (80-97) 04/30/19 12:30 MCH 27.1 pg (27.0-33.4) 04/30/19 12:30 MCHC 33.3 g/dL (32.0-36.0) 04/30/19 12:30 RDW 12.5 % (11.5-14.0) 04/30/19 12:30 Plt Count 279 10^3/uL (150-450) 04/30/19 12:30 Lymph % (Auto) 28.9 % (13-45) 04/30/19 12:30 [place] % (Auto) 6.0 % (3-13) 04/30/19 12:30 Eos % (Auto) 1.7 % (0-6) 04/30/19 12:30 Baso % (Auto) 0.8 % (0-2) 04/30/19 12:30 Absolute Neuts (auto) 4.9 10^3/uL (1.7-8.2) 04/30/19 12:30 Absolute Lymphs (auto) 2.3 10^3/uL (0.5-4.7) 04/30/19 12:30 Absolute Monos (auto) 0.5 10^3/uL (0.1-1.4) 04/30/19 12:30 Absolute Eos (auto) 0.1 10^3/uL (0.0-0.6) 04/30/19 12:30 Absolute Basos (auto) 0.1 10^3/uL (0.0-0.2) 04/30/19 12:30 Seg Neutrophils % 62.6 % (42-78) 04/30/19 12:30 PT 12.8 SEC (11.4-15.4) 04/30/19 12:30 INR 0.96 04/30/19 12:30 APTT 34.3 SEC (23.5-35.8) 04/30/19 12:30 Sodium 142.1 mmol/L (137-145) 05/01/19 06:20 Potassium 4.3 mmol/L (3.6-5.0) 05/01/19 06:20 Chloride 110 mmol/L (98-107) H 05/01/19 06:20 Carbon Dioxide 23 mmol/L (22-30) 05/01/19 06:20 Anion Gap 9 (5-19) 05/01/19 06:20 BUN 19 mg/dL (7-20) 05/01/19 06:20 Creatinine 0.97 mg/dL (0.52-1.25) 05/01/19 06:20 Est GFR ( Amer) > 60 (>60) 05/01/19 06:20 Est GFR (MDRD) Non-Af 59 (>60) L 05/01/19 06:20 Glucose 101 mg/dL (75-110) 05/01/19 06:20 Calcium 9.9 mg/dL (8.4-10.2) 05/01/19 06:20 Total Bilirubin 0.3 mg/dL (0.2-1.3) 04/30/19 12:30 Direct Bilirubin 0.1 mg/dL (0.0-0.4) 04/30/19 12:30 Neonat Total Bilirubin Not Reportable 04/30/19 12:30 Neonat Direct Bilirubin Not Reportable 04/30/19 12:30 Neonat Indirect Bili Not Reportable 04/30/19 12:30 AST 28 U/L (14-36) 04/30/19 12:30 ALT 15 U/L (<35) 04/30/19 12:30 Alkaline Phosphatase 59 U/L (38-126) 04/30/19 12:30 Creatine Kinase 150 U/L (30-135) H 04/30/19 12:30 CK-MB (CK-2) 0.59 ng/mL (<4.55) 04/30/19 12:30 Troponin I < 0.012 ng/mL 04/30/19 12:30 Total Protein 7.3 g/dL (6.3-8.2) 04/30/19 12:30 Albumin 4.5 g/dL (3.5-5.0) 04/30/19 12:30 Triglycerides 170 mg/dL (<150) H 05/01/19 06:20 Cholesterol 231.62 mg/dL (0-200) H 05/01/19 06:20 LDL Cholesterol Direct 163 mg/dL (<100) H 05/01/19 06:20 VLDL Cholesterol 34.0 mg/dL (10-31) H 05/01/19 06:20 HDL Cholesterol 44 mg/dL (>40) 05/01/19 06:20 04/30/19 12:30 CK-MB (CK-2) 0.59 Troponin I < 0.012 Impressions: Chest X-Ray 04/30/19 13:15 IMPRESSION: NO ACUTE RADIOGRAPHIC FINDING IN THE CHEST. Head CT 04/30/19 13:15 IMPRESSION: 1. Focal area of hypoattenuation within the right centrum semiovale suggestive of age-indeterminate lacunar infarct. MRI could be considered for further characterization of chronicity. 2. Sinus mucosal disease within the left sphenoid sinus. EVIDENCE OF ACUTE STROKE: Age-indeterminate lacunar infarct. Pertinent positive or negative findings of the imaging study reported as a CRITICAL EXAM to Dr. Tarango at13:37 on 04/30/2019. Head MRI 04/30/19 15:03 IMPRESSION: Chronic right lacunar infarct corresponding to the area of abnormality on the CT. No acute intracranial process. EVIDENCE OF ACUTE STROKE: NO. Carotid Doppler Study 04/30/19 16:59 IMPRESSION: NO HEMODYNAMICALLY SIGNIFICANT STENOSIS. Plan Time Spent: Greater than 30 Minutes Stroke Is this a Stroke Patient?: Yes Stroke Pt being discharged on Anti-thrombolytic therapy?: Yes Stroke Pt being discharged on Anti-coagulation therapy?: No Reason(s) for not prescribing Anti-coagulation therapy:: Not indicated Stroke Pt being discharged on Statins?: Yes Acute Heart Failure - Is this a Heart Failure Patient?: No
== END 2019-05-01 12:45 | disposition home or self-care (01) | DRG 66 ==
LOC: ER 12:57 → EH 17:21 → 3W 20:01
PROVIDERS: ADMIT Family Medicine; ATTEND Family Medicine
DX: I63.81 Other cerebral infarction due to occlusion or stenosis of small artery (principal); R47.1 Dysarthria and anarthria; R29.810 Facial weakness; F17.210 Nicotine dependence, cigarettes, uncomplicated
CPT/HCPCS: 36415; 70450; 70551; 71045; 80048; 80053; 80061; 82550; 82553; 84484; 85025; 85610; 85730; 93005; 93010; 93880; 99285; J3490

== ENCOUNTER → 2019-05-08 | Outpatient (CLI) | payer OTHER ==
[2019-05-08 11:28] LABS: ABSOLUTE BASOPHILS # (AUTO) 0.1 10^3/uL (0.0-0.2); ABSOLUTE EOSINOPHILS # (AUTO) 0.2 10^3/uL (0.0-0.6); ABSOLUTE LYMPHOCYTES (AUTO) 3.3 10^3/uL (0.5-4.7); ABSOLUTE MONOCYTES (AUTO) 0.4 10^3/uL (0.1-1.4); ABSOLUTE NEUT (AUTO) 3.5 10^3/uL (1.7-8.2); BASOPHILS % (AUTO) 1.1 % (0-2); EOSINOPHILS % (AUTO) 2.5 % (0-6); HEMATOCRIT 39.4 % (36.0-47.0); HEMOGLOBIN 13.1 g/dL (12.0-15.5); LYMPHOCYTES % (AUTO) 44.3 % (13-45); MEAN CORPUSCULAR HEMOGLOBIN 27.4 pg (27.0-33.4); MEAN CORPUSCULAR HGB CONC 33.4 g/dL (32.0-36.0); MEAN CORPUSCULAR VOLUME 82 fl (80-97); MONOCYTES % (AUTO) 5.8 % (3-13); PLATELET COUNT 301 10^3/uL (150-450); RED BLOOD COUNT 4.79 10^6/uL (3.72-5.28); RED CELL DISTRIBUTION WIDTH 12.9 % (11.5-14.0); SEGMENTED NEUTROPHILS % (AUTO) 46.3 % (42-78); TOTAL CELLS COUNTED % (AUTO) 100 %; WHITE BLOOD COUNT 7.5 10^3/uL (4.0-10.5)
[2019-05-08 12:10] LABS: ERYTHROCYTE SEDIMENTATION RATE 10 mm/hr (0-30)
== END ==
LOC: CCC 10:49
DX: R51 Headache (principal)
CPT/HCPCS: 36415; 85025; 85652; 86140

== ENCOUNTER 2019-05-14 15:36 | Emergency (ER) | payer SELFPAY ==
--- NOTE | 2019-05-14 17:12 | ER Document Report ---
ED Medical Screen (RME) - General Chief Complaint: Headache Stated Complaint: HEADACHE Time Seen by Provider: 05/14/19 17:10 Primary Care Provider: DAL[facility] [Primary Care Provider] - Follow up as needed Notes: 54-year-old female presents to ED for extreme headache. She states the worst headache in her life. She states she was seen in the ED on 30 April discharged on the . She states they told her that she had multiple TIAs she had drooping on the left side of her face at that time. She states today she has the worst headache in her life and she called the doctor and they told her to come to the emergency room to get checked out. She is alert oriented and answering all questions appropriate no obvious droop noted at this time. She does not have any palmar drift. She has no obvious neurological deficits at this moment. I have greeted and performed a rapid initial assessment of this patient. A comprehensive ED assessment and evaluation of the patient, analysis of test results and completion of medical decision making process will be conducted by an additional ED providers. TRAVEL OUTSIDE OF THE [place] IN LAST 30 DAYS: No - Related Data Allergies/Adverse Reactions: No Known Allergies Allergy (Verified 05/14/19 17:08) Home Medications: pt reports no changes from recent admission Past Medical History Pulmonary Medical History: Reports: Hx Pneumonia Renal/ Medical History: Reports: Hx Ectopic , Hx Ovarian Cysts. Denies: Hx Peritoneal Dialysis GI Medical History: Reports: Hx Diverticulitis, Hx Gastritis Past Surgical History: Reports: Hx Appendectomy, Hx Gynecologic Surgery - both tubes and one ovary removed, Hx Tonsillectomy, Hx Tubal Ligation - Immunizations Immunizations up to date: Yes Hx Diphtheria, Pertussis, Tetanus Vaccination: Yes Physical Exam - Vital signs Vitals: Temp Pulse Resp BP Pulse Ox 98.8 F 70 18 134/86 H 99 05/14/19 16:25 05/14/19 16:25 05/14/19 16:25 05/14/19 16:25 05/14/19 16:25 Course - Vital Signs Vital signs: Temp Pulse Resp BP Pulse Ox 98.8 F 70 18 134/86 H 99 05/14/19 16:25 05/14/19 16:25 05/14/19 16:25 05/14/19 16:25 05/14/19 16:25 Doctor's Discharge - Discharge [facility] [[facility]] - Follow up as needed
[2019-05-14 17:43] LABS: ABSOLUTE BASOPHILS # (AUTO) 0.1 10^3/uL (0.0-0.2); ABSOLUTE EOSINOPHILS # (AUTO) 0.2 10^3/uL (0.0-0.6); ABSOLUTE LYMPHOCYTES (AUTO) 3.7 10^3/uL (0.5-4.7); ABSOLUTE MONOCYTES (AUTO) 0.4 10^3/uL (0.1-1.4); ABSOLUTE NEUT (AUTO) 5.1 10^3/uL (1.7-8.2); BASOPHILS % (AUTO) 1.2 % (0-2); EOSINOPHILS % (AUTO) 1.6 % (0-6); HEMATOCRIT 38.3 % (36.0-47.0); HEMOGLOBIN 12.8 g/dL (12.0-15.5); LYMPHOCYTES % (AUTO) 38.8 % (13-45); MEAN CORPUSCULAR HEMOGLOBIN 27.3 pg (27.0-33.4); MEAN CORPUSCULAR HGB CONC 33.4 g/dL (32.0-36.0); MEAN CORPUSCULAR VOLUME 82 fl (80-97); MONOCYTES % (AUTO) 4.6 % (3-13); PLATELET COUNT 287 10^3/uL (150-450); RED BLOOD COUNT 4.67 10^6/uL (3.72-5.28); RED CELL DISTRIBUTION WIDTH 13.1 % (11.5-14.0); SEGMENTED NEUTROPHILS % (AUTO) 53.8 % (42-78); TOTAL CELLS COUNTED % (AUTO) 100 %; WHITE BLOOD COUNT 9.5 10^3/uL (4.0-10.5)
[2019-05-14 17:46] LABS: INTERNATIONAL RATION (INR) 0.98
[2019-05-14 17:47] LABS: PARTIAL THROMBOPLASTIN TIME 33.3 SEC (23.5-35.8)
--- NOTE | 2019-05-14 17:56 | RADIOLOGY REPORT (SQ) ---
EXAM DESCRIPTION: CT HEAD WITHOUT COMPLETED DATE/TIME: 05/14/2019 5:44 pm REASON FOR STUDY: Headache, admitted for stroke on 04/30 COMPARISON: None. TECHNIQUE: Axial images acquired through the brain without intravenous contrast. Images reviewed wi th bone, brain and subdural windows. Additional sagittal and coronal reconstructions were generated. Images stored on PACS. All CT scanners at this facility use dose modulation, iterative reconstruction, and/or weight based d osing when appropriate to reduce radiation dose to as low as reasonably achievable (ALARA). [facility]: Dose Right [facility]: CareDose [facility]: Dose Right [facility]: Teradose 4D [facility]: [employer] RADIATION DOSE: CT Rad equipment meets quality standard of care and radiation dose reduction techniq ues were employed. CTDIvol: 53.2 mGy. DLP: 1203 mGy-cm. mGy. LIMITATIONS: None. FINDINGS: VENTRICLES: Normal size and contour. CEREBRUM: No masses. No hemorrhage. No midline shift. No evidence for acute infarction. Areas of l ow density in the white matter most likely chronic small vessel ischemic changes. CEREBELLUM: No masses. No hemorrhage. No alteration of density. No evidence for acute infarction. EXTRAAXIAL SPACES: No fluid collections. No masses. ORBITS AND GLOBE: No intra- or extraconal masses. Normal contour of globe without masses. CALVARIUM: No fracture. PARANASAL SINUSES: No fluid or mucosal thickening. SOFT TISSUES: No mass or hematoma. OTHER: No other significant finding. IMPRESSION: Chronic microvascular ischemia. No acute intracranial imaging finding. EVIDENCE OF ACUTE STROKE: NO. COMMENT: Quality ID # [id number]: Final reports with documentation of one or more dose reduction techniques (e.g., Automated exposure control, adjustment of the mA and/or kV according to patient size, use of iterative reconstruction technique) TECHNICAL DOCUMENTATION: JOB ID: [id number] [employer]- All Rights Reserved Reading location - IP/workstation name: [email or web address]
[2019-05-14 18:11] LABS: ALBUMIN 4.8 g/dL (3.5-5.0); ALKALINE PHOSPHATASE 51 U/L (38-126); ANION GAP 9 (5-19); ASPARTATE AMINO TRANSFERASE 32 U/L (14-36); BILIRUBIN,DIRECT 0.1 mg/dL (0.0-0.4); BILIRUBIN,TOTAL 0.4 mg/dL (0.2-1.3); BLOOD UREA NITROGEN 16 mg/dL (7-20); CALCIUM 10.2 mg/dL (8.4-10.2); CARBON DIOXIDE 28 mmol/L (22-30); CHLORIDE 103 mmol/L (98-107); GLUCOSE 91 mg/dL (75-110); POTASSIUM 4.7 mmol/L (3.6-5.0); TOTAL PROTEIN 7.7 g/dL (6.3-8.2)
--- NOTE | 2019-05-14 19:48 | ER Document Report ---
ED Headache - General Chief Complaint: Headache Stated Complaint: HEADACHE Time Seen by Provider: 05/14/19 19:48 Primary Care Provider: [facility] [Primary Care Provider] - Follow up as needed Mode of Arrival: Ambulatory Information source: Patient Notes: HISTORY OF PRESENT ILLNESS: Patient is a 54-year-old female with a past medical history of recent stroke who presents with 2 to 3 weeks of chronic headaches that the patient reports began after she was admitted to the hospital for having a stroke. Location: Global cerebral Onset: 3 weeks ago Provocation: None Quality: Aching, throbbing Radiation: None Severity: Moderate Timing: Persistent History of headaches: None before recent hospitalization Recent head injury: None Vision changes: None Trouble walking: None Associated symptoms: No fevers or chills, no cough or congestion, no vision draper ges, no ataxia, no weakness of the extremities, no numbness/tingling REVIEW OF SYSTEMS: CONSTITUTIONAL : Denies fever or chills, no sweats. Denies recent illness. EENT: Denies eye, ear, throat, or mouth pain or symptoms. Denies nasal or sinus congestion. CARDIOVASCULAR: Denies chest pain. RESPIRATORY: Denies cough, cold, or chest congestion. Denies shortness of breath, difficulty breathing, or wheezing. GASTROINTESTINAL: Denies abdominal pain. Denies nausea, vomiting, or diarrhea. Denies constipation. GENITOURINARY: Denies difficulty urinating, painful urination, burning, frequency, or blood in urine. MUSCULOSKELETAL: Denies body aches. Denies neck or back pain or joint pain or swelling. SKIN: Denies rash or skin lesions. HEMATOLOGIC : Denies easy bruising or bleeding. LYMPHATIC: Denies swollen, enlarged glands. NEUROLOGICAL: Positive for headaches. Denies altered mental status or loss of consciousness. Denies weakness or paralysis or loss of use of either side. Denies problems with gait or speech. Denies sensory or motor loss. PSYCHIATRIC: Denies anxiety or stress or depression. All other systems reviewed and negative. PHYSICAL EXAMINATION: GENERAL: Well-appearing, well-nourished and in no acute distress. HEAD: Atraumatic, normocephalic. No scalp deformity, depression, or crepitance. EYES: Pupils are 3 mm and equal/round/reactive to light, extraocular movements intact, sclera anicteric, conjunctiva are normal. ENT: Nares patent bilaterally, oropharynx clear without exudates or palatal petechia. Moist mucous membranes. No tonsil hypertrophy. NECK: Normal range of motion, supple without lymphadenopathy. LUNGS: Breath sounds present, equal, and clear to auscultation bilaterally. No wheezes, rales, or rhonchi. HEART: Regular rate and rhythm without murmurs, rubs, or gallops. 2+ peripheral pulses. Normal capillary refill. ABDOMEN: Soft, nontender, nondistended. Normoactive bowel sounds. No guarding, no rebound. No masses appreciated. BACK: Normal contour, no midline tenderness. Rectal exam deferred. GENITAL/PELVC: Deferred. EXTREMITIES: Normal range of motion, no pitting or edema. No cyanosis. NEUROLOGICAL: No focal neurological deficits. Cranial nerves III-XII grossly intact. Moves all extremities spontaneously and on command. PSYCH: Normal mood, normal affect. No suicidal thoughts/ideations. No homicidal thoughts/ideations. No hallucinations. SKIN: Warm, dry, normal turgor, no rashes or lesions noted. ASSESSMENT AND PLAN: This patient is a 54-year-old female who presents with acute on chronic headache that is been persistent for the past 3 weeks after her most recent stroke. Concern for acute bleed versus migraine headache versus intracerebral scar tissue from recent stroke. 1. Will obtain labs, CT head, and reassess. 2. Will give oral Fioricet for pain control. TRAVEL OUTSIDE OF THE [place] IN LAST 30 DAYS: No - HPI Patient complains to provider of: Headache Patient reports: Prior CVA Onset: Other - 2 weeks ago Onset was: Gradual Timing: Still present Quality of pain: Throbbing Severity: Moderate Pain Level: 2 Associated symptoms: None Similar symptoms previously: Yes Recently seen / treated by doctor: No - Related Data Allergies/Adverse Reactions: No Known Allergies Allergy (Verified 05/14/19 17:08) Home Medications: pt reports no changes from recent admission Past Medical History - General Information source: Patient - Social History Smoking Status: Current Every Day Smoker Chew tobacco use (# tins/day): No Frequency of alcohol use: None Drug Abuse: None Lives with: Family Family History: CAD, Hyperlipidemia, Hypertension, Malignancy Patient has suicidal ideation: No Patient has homicidal ideation: No - Past Medical History Cardiac Medical History: Reports: None Pulmonary Medical History: Reports: Hx Pneumonia EENT Medical History: Reports: None Neurological Medical History: Reports: None Endocrine Medical History: Reports: None Renal/ Medical History: Reports: Hx Ectopic , Hx Ovarian Cysts. Denies: Hx Peritoneal Dialysis Malignancy Medical History: Reports: None GI Medical History: Reports: Hx Diverticulitis, Hx Gastritis Musculoskeletal Medical History: Reports None Skin Medical History: Reports None Psychiatric Medical History: Reports: None Traumatic Medical History: Reports: None Infectious Medical History: Reports: None Past Surgical History: Reports: Hx Appendectomy, Hx Gynecologic Surgery - both tubes and one ovary removed, Hx Tonsillectomy, Hx Tubal Ligation - Immunizations Immunizations up to date: Yes Hx Diphtheria, Pertussis, Tetanus Vaccination: Yes Review of Systems - Review of Systems Constitutional: No symptoms reported EENT: No symptoms reported Cardiovascular: No symptoms reported Respiratory: No symptoms reported Gastrointestinal: No symptoms reported Genitourinary: No symptoms reported Female Genitourinary: No symptoms reported Musculoskeletal: No symptoms reported Skin: No symptoms reported Hematologic/Lymphatic: No symptoms reported Neurological/Psychological: See HPI, Headaches -: Yes All other systems reviewed and negative Physical Exam - Vital signs Vitals: Temp Pulse Resp BP Pulse Ox 98.8 F 70 18 134/86 H 99 05/14/19 16:25 05/14/19 16:25 05/14/19 16:25 05/14/19 16:25 05/14/19 16:25 Interpretation: Normal Course - Re-evaluation Re-evalutation: 05/14/19 21:19 CT head is negative. Will discharge the patient home with strict return precautions and follow-up with primary care. All results were explained to and discussed with the patient, and all questions addressed and answered. The patient voices both understanding and agreeing with the plan. - Vital Signs Vital signs: Temp Pulse Resp BP Pulse Ox 97.9 F 66 16 119/77 98 05/14/19 21:22 05/14/19 21:22 05/14/19 21:22 05/14/19 21:22 05/14/19 21:22 - Laboratory Result Diagrams: 05/14/19 17:25 05/14/19 17:25 - Diagnostic Test Radiology reviewed: Image reviewed, Reports reviewed Discharge - Discharge Clinical Impression: Migraine headache Qualifiers: Migraine type: unspecified Status migrainosus presence: without status migrainosus Intractability: not intractable Qualified Code(s): G43.909 - Migraine, unspecified, not intractable, without status migrainosus Condition: Good Disposition: HOME, SELF-CARE Instructions: Headache ([facility]) Additional Instructions: You have been evaluated in the Emergency Department for headaches. While here, you had normal blood work and CT head and it is now safe to be discharged home. Please follow-up with your primary physician as instructed in one week to be rechecked. Return to the Emergency Department if you experience worsening headaches, vision changes, difficulty walking, confusion, disorientation, or any other concerning symptoms. Prescriptions: Butalb/Acetaminophen/Caffeine [Iadwml-[id number]-Pris 50-325-40] 1 each PO Q6HP PRN #30 capsule PRN Reason: For Headache Referrals: [facility] [Primary Care Provider] - Follow up as needed Print Language: Chinese
[2019-05-14] MEDS ORDERED: BUTALB/ACETAMINOPHEN/CAFFEINE 1 TAB EACH PO ONE (20:12)
[2019-05-14 21:23] VITALS: BP 119/77
== END 2019-05-14 21:23 | disposition home or self-care (01) ==
LOC: ER 15:36
DX: G43.909 Migraine, unspecified, not intractable, without status migrainosus (principal); F17.200 Nicotine dependence, unspecified, uncomplicated; Z98.51 Tubal ligation status
CPT/HCPCS: 36415; 85025; 85610; 85730; 80053; 70450; J3490; 99284

== ENCOUNTER → 2019-05-26 | Outpatient (CLI) | payer OTHER ==
[2019-05-26 11:58] LABS: ABSOLUTE BASOPHILS # (AUTO) 0.2 10^3/uL (0.0-0.2); ABSOLUTE EOSINOPHILS # (AUTO) 0.3 10^3/uL (0.0-0.6); ABSOLUTE MONOCYTES (AUTO) 0.5 10^3/uL (0.1-1.4); ABSOLUTE NEUT (AUTO) 5.1 10^3/uL (1.7-8.2); BASOPHILS % (AUTO) 1.9 % (0-2); EOSINOPHILS % (AUTO) 2.6 % (0-6); HEMATOCRIT 40.3 % (36.0-47.0); HEMOGLOBIN 13.3 g/dL (12.0-15.5); LYMPHOCYTES % (AUTO) 39.8 % (13-45); MEAN CORPUSCULAR HEMOGLOBIN 27.1 pg (27.0-33.4); MEAN CORPUSCULAR HGB CONC 32.9 g/dL (32.0-36.0); MEAN CORPUSCULAR VOLUME 82 fl (80-97); MONOCYTES % (AUTO) 4.9 % (3-13); PLATELET COUNT 237 10^3/uL (150-450); RED CELL DISTRIBUTION WIDTH 12.9 % (11.5-14.0); SEGMENTED NEUTROPHILS % (AUTO) 50.8 % (42-78); TOTAL CELLS COUNTED % (AUTO) 100 %
[2019-05-26 12:18] LABS: ANION GAP 13 (5-19); BLOOD UREA NITROGEN 17 mg/dL (7-20); CALCIUM 10.3 mg/dL (8.4-10.2); CARBON DIOXIDE 21 mmol/L (22-30); CHLORIDE 111 mmol/L (98-107); CREATINE KINASE 112 U/L (30-135); GLUCOSE 93 mg/dL (75-110); POTASSIUM 4.9 mmol/L (3.6-5.0)
[2019-05-26 12:21] LABS: C-REACTIVE PROTEIN < 5.0 mg/L (<10.0)
[2019-05-26 12:32] LABS: FREE T4 (FREE THYROXINE) 1.01 ng/dL (0.78-2.19)
[2019-05-26 12:34] LABS: ERYTHROCYTE SEDIMENTATION RATE 9 mm/hr (0-30)
[2019-05-26 12:46] LABS: THYROID STIMULATING HORMONE 7.53 uIU/mL (0.47-4.68)
== END ==
LOC: CCC 11:03
DX: R53.83 Other fatigue (principal); R51 Headache
CPT/HCPCS: 36415; 80048; 82550; 83036; 84439; 84443; 85025; 85652; 86140